=== PATIENT | male | born 1995 | race Caucasian/White ===

== ENCOUNTER 2025-03-14 16:29 | Emergency (ER) | payer OTHER ==
[2025-03-14 16:33] VITALS: BP 135/67; PULSE 104; RESP 18; TEMP 97.3; BMI 28.8
[2025-03-14] MEDS ORDERED: IBUPROFEN 600 MG TABLET (FP) PO ONE (16:59)
[2025-03-14] MEDS: IBUPROFEN 600 MG TABLET (FP) PO ONE (17:01)
== END 2025-03-14 17:03 | disposition home or self-care (01) ==
LOC: JERFT 16:29
DX: S39.012A Strain of muscle, fascia and tendon of lower back, initial encounter (principal); X50.1XXA Overexertion from prolonged static or awkward postures, initial encounter; Y99.0 Civilian activity done for income or pay
CPT/HCPCS: 99283-25